=== PATIENT | female | born 1970 | race Caucasian/White ===

== ENCOUNTER → 2017-01-06 | Outpatient (CLI) | payer BC ==
[2017-01-06 08:41] LABS: Basophils % (A) 1 %; CH 30.6; CHCM 33.7; Eosinophils # (A) 0.1 k/uL (0-0.7); Eosinophils % (A) 1 %; Luc # (Auto) 0.18; Luc % (Auto) 3; Lymphocytes # (A) 1.4 k/uL (1.0-4.8); Lymphocytes % (A) 23 %; MCH 31.1 pg (25.0-35.0); MCHC 34.1 g/dL (31.0-37.0); MCV 91.1 fL (80.0-100.0); Mean Platelet Volume 8.1; Monocytes # (A) 0.4 k/uL (0-1.0); Monocytes % (A) 7 %; Neutrophils # (A) 4.1 k/uL (1.3-7.7); Neutrophils % (A) 66 %; RDW 11.9 % (11.5-15.5); WBC 6.3 k/uL (3.8-10.6); WBC (Perox) 6.74
[2017-01-06 08:56] LABS: Anion Gap 11 mmol/L; Blood Urea Nitrogen 14 mg/dL (7-17); Calcium 9.7 mg/dL (8.4-10.2); Carbon Dioxide 27 mmol/L (22-30); Chloride 102 mmol/L (98-107); Glucose 84 mg/dL (74-99); Non-African American GFR(MDRD) >60 (>60 ml/min/1.73 sqM); Potassium 4.7 mmol/L (3.5-5.1); Sodium 140 mmol/L (137-145)
== END | disposition home or self-care (01) ==
LOC: LABPAT 08:18
PROVIDERS: ATTEND Obstetrics & Gynecology
DX: Z01.812 Encounter for preprocedural laboratory examination (principal)
CPT/HCPCS: 80048; 85025; 86850; 86900; 86901

== ENCOUNTER 2017-01-15 05:54 | Observation (INO) | payer BC ==
[2017-01-13 10:17] VITALS: BMI 24.2
--- NOTE | 2017-01-14 16:21 | P.HPOB ---
History of Present Illness H&P Date: 01/14/17 Chief Complaint: fibroid uterus 46 year old presents for TLH with da andrews due to pelvic discomfort from a fibroid uterus. Review of Systems All systems: negative Constitutional: Denies chills, Denies fever Eyes: denies blurred vision, denies pain Ears, nose, mouth and throat: Denies headache, Denies sore throat Cardiovascular: Denies chest pain, Denies shortness of breath Respiratory: Denies cough Gastrointestinal: Denies abdominal pain, Denies diarrhea, Denies nausea, Denies vomiting Genitourinary: Denies dysuria, Denies hematuria Musculoskeletal: Denies myalgias Integumentary: Denies pruritus, Denies rash Neurological: Denies numbness, Denies weakness Psychiatric: Denies anxiety, Denies depression Endocrine: Denies fatigue, Denies weight change Past Medical History Additional Past Medical History / Comment(s): fibroids in uterus History of Any Multi-Drug Resistant Organisms: None Reported Past Surgical History: Tubal Ligation, Uterine Ablation Additional Past Surgical History / Comment(s): lasik eye surgery Past Anesthesia/Blood Transfusion Reactions: Motion Sickness Past Psychological History: No Psychological Hx Reported Smoking Status: Never smoker Past Alcohol Use History: Rare Past Drug Use History: None Reported - Past Family History Father Family Medical History: Deep Vein Thrombosis (DVT) Medications and Allergies Home Medications Medication Instructions Recorded Confirmed Type Cholecalciferol [Vitamin D3] 5,000 unit PO DAILY 01/13/17 01/13/17 History Ibuprofen [Motrin] 200 - 400 mg PO Q6HR PRN 01/13/17 01/13/17 History Allergies Allergy/AdvReac Type Severity Reaction Status Date / Time No Known Allergies Allergy Verified 01/13/17 10:11 Exam Osteopathic Statement: *. No significant issues noted on an osteopathic structural exam other than those noted in the History and Physical/Consult. Heart: RRR Lungs: CTAB Abdomen: soft, nontender Extremeties: neg megan's Assessment and Plan (1) Fibroid uterus Status: Acute Plan: 1. TLH with da andrews possible JONATHAN BSO
[~2017-01-15 05:54] MED LIST: ceFAZolin 2 GM in SODIUM CHLORIDE 0.9% 100 ML IVPB ONE
[2017-01-15] MEDS ORDERED: DEXAMETHASONE SOD PHOSPHATE 10 MG/ML 1 ML VIAL IV ONE (05:57)
[2017-01-15] MEDS ORDERED: MIDAZOLAM 2 MG/2 ML VIAL IV PRN (05:57)
[2017-01-15] MEDS ORDERED: HYDROmorphone 1 MG/ML 1 ML SYRINGE IVP PRN (05:57)
[2017-01-15] MEDS ORDERED: LIDOCAINE 1% 20 ML VIAL (10MG/ML) FOR IV START INTRADERMA ONE (06:30)
[2017-01-15] MEDS: ONDANSETRON 4 MG/2 ML VIAL IVP ONE ×2 (06:31→10:19)
[2017-01-15] MEDS: LACTATED RINGERS 1,000 ML IV SCH (06:35)
[2017-01-15] MEDS ORDERED: SCOPOLAMINE 1.5MG/72HR PATCH TRANSDERM ONE (06:59)
[2017-01-15] MEDS ORDERED: MIDAZOLAM 2 MG/2 ML VIAL ONE (07:13)
[2017-01-15] MEDS ORDERED: PHENYLEPHRINE-0.9% NACL SYG 1 MG/10 ML SYRINGE ONE (07:13)
[2017-01-15] MEDS ORDERED: fentaNYL (PF) 50 MCG/ML 2 ML AMP ONE (07:13)
[2017-01-15] MEDS ORDERED: ROCURONIUM BROMIDE 10 MG/ML 10 ML VIAL IV ONE (07:13)
[2017-01-15] MEDS ORDERED: PROPOFOL 10 MG/ML 20 ML VIAL IV ONE (07:13)
[2017-01-15] MEDS ORDERED: SUCCINYLCHOLINE CHLORIDE 100 MG/5 ML SYR IV ONE (07:13)
[2017-01-15] MEDS ORDERED: GLYCOPYRROLATE 0.2 MG/ML 2 ML VIAL ONE (07:13)
[2017-01-15] MEDS ORDERED: BUPIVACAINE (PF) 0.25% 30 ML VIAL SQ ONE ×2 (07:48→08:47)
--- NOTE | 2017-01-15 09:15 | P.OP ---
Date of Procedure: 01/15/17 Preoperative Diagnosis: 1. Fibroid uterus 2. Pelvic pain Postoperative Diagnosis: 1. Fibroid uterus 2. Pelvic pain Procedure(s) Performed: Total laparoscopic hysterectomy right salpingectomy with da Johnnie Anesthesia: KWAN Surgeon: Mervat Moreno Hydropulper #1: Pamella Chen Estimated Blood Loss (ml): 10 IV fluids (ml): 700 Urine output (ml): 150 Pathology: other (Uterus cervix right fallopian tube) Condition: stable Disposition: PACU Operative Findings: Fibroid uterus, bilateral normal ovaries and tubes Description of Procedure: Patient taken the operating room where general anesthesia was obtained without difficulty. She is prepped and draped in normal sterile fashion dorsal lithotomy position, legs placed in the Josh stirrups. Weighted speculum placed in the vagina and the anterior lip the cervix was grasped with single- tooth tenaculum. The uterus sounded to 10 cm and the cervix diameter was 3.5 cm. The appropriate manipulator tip and ring were placed on the Meghan manipulator. The Meghan manipulator was then placed in the uterus. Mcelroy catheter was also placed. Attention was then turned to the abdomen and gloves were changed. A 5 mm supraumbilical incision was made the scalpel and a 5 mm optical trocar was placed under direct visualization. 10 cm to the right of this and 2 cm down a 5 mm incision was made and 8 mm da Johnnie port was placed under direct visualization. Same measurements on the opposite side of the patient's abdomen, the 5 mm incision was made and 8 mm da Johnnie port was placed under direct visualization. In the left upper quadrant a 10 mm incision was made and a 10 mm optical trocar was placed under direct visualization. The 5 mm optical trocar was then replaced with the 8 mm da Johnnie camera port. The robot was docked on patient's right side. The camera was introduced and then the monopolar curved scissor and [place] bipolar placed under direct visualization. I broke scrub and went to the physician console. The left utero -ovarian ligament was cauterized with the [place] bipolar and cut with monopolar curved scissors. The left round ligament was cauterized with the [place] bipolar and cut with monopolar curved scissors. The posterior leaf of the broad ligament was taken down using the monopolar curved scissors. Anterior leaf of the broad ligament was then taken down using the monopolar curved scissors. The uterine artery was cauterized with the [place] bipolar and cut with monopolar curved scissors. The bladder flap was then started using the monopolar curved scissors. Attention was then turned to the right side of the patient's anatomy and the right mesosalpinx and utero-ovarian ligament was cauterized with the [place] bipolar and cut with monopolar curved scissors. The right round ligament was cauterized with the [place] bipolar and cut with monopolar curved scissors. Posterior leaf of the broad ligament was taken down using the monopolar curved scissors and the anterior leaf was taken down using the monopolar curved scissors. The uterine artery was cauterized the [place] bipolar cut with monopolar curved scissors. The bladder flap was then finished on this side. Anterior colpotomy was made using the monopolar curved scissors. The rest of the uterus was from the vaginal cuff by following the ring around with the monopolar curved scissors through the uterosacral ligaments back to the anterior portion. Once the uterus and cervix were amputated they were pulled through the vaginal cuff. Hemostasis was assured. The instruments were changed for the Cardier forcep and the leidy suture cut. The vaginal cuff was then closed using O stratafix barbed suture in a running fashion. Hemostasis was again assured and the pelvis was irrigated. All instruments were removed from the abdomen and the robot was undocked. I scrubbed back in to perform a cystoscopy. There were jets from both ureteral orifices. The abdominal incisions were closed with 4-0 Vicryl in a subcuticular fashion. Patient tolerated the procedure well, sponge and instrument counts correct 2 and she was taken to recovery room in stable condition condition
[2017-01-15] MEDS ORDERED: ONDANSETRON 4 MG/2 ML VIAL IVP PRN (10:26)
[2017-01-15] MEDS ORDERED: IBUPROFEN 600 MG TAB PO PRN (10:26)
[2017-01-15] MEDS ORDERED: SIMETHICONE 80 MG CHEWABLE PO PRN (10:26)
[2017-01-15] MEDS ORDERED: Acetaminophen-Codeine 300-30mg TAB PO PRN ×2 (10:26)
[2017-01-15] MEDS ORDERED: METOCLOPRAMIDE 5 MG/ML 2 ML VIAL IVP PRN (10:26)
[2017-01-15] MEDS: KETOROLAC 30 MG/ML 1 ML VIAL IVP PRN ×2 (12:00→18:05)
[2017-01-16] MEDS: KETOROLAC 30 MG/ML 1 ML VIAL IVP PRN ×2 (00:01→05:59)
[2017-01-16 00:48] VITALS: RESP 16
--- NOTE | 2017-01-16 07:50 | P.DS ---
Providers Date of admission: 01/16/17 00:52 Expected date of discharge: 01/16/17 Attending physician: Mervat Moreno Primary care physician: Fritz Valdez - Discharge Diagnosis(es) (1) Fibroid uterus Current Visit: Yes Status: Resolved (2) History of robot-assisted laparoscopic hysterectomy Current Visit: Yes Status: Acute Hospital Course: PAtient presented for [facility] with da andrews for fibroid uterus. She underwent this procedure without complication. Her post op course was uneventful. Her pain is well controlled, she is ambulating and voiding without difficulty. Denies N/V, F /C, CP, SOB, calf pain. She will be discharged home POD #1 in stable condition to follow up with me in 3 weeks. Plan - Discharge Summary New Discharge Prescriptions: Acetaminophen-Codeine 300-30mg [Tylenol w/codeine #3] 2 each PO Q6HR PRN #30 tab PRN Reason: Severe Pain Ibuprofen [Motrin] 600 mg PO Q6HR PRN #30 tab PRN Reason: Mild Discomfort Discharge Medication List Cholecalciferol [Vitamin D3] 5,000 unit PO DAILY 01/13/17 [History] Ibuprofen [Motrin] 200 - 400 mg PO Q6HR PRN 01/13/17 [History] Acetaminophen-Codeine 300-30mg [Tylenol w/codeine #3] 2 each PO Q6HR PRN #30 tab 01/16/17 [Rx] Ibuprofen [Motrin] 600 mg PO Q6HR PRN #30 tab 01/16/17 [Rx] Follow up Appointment(s)/Referral(s): Mervat Moreno DO [Doctor of Osteopathic Medicine] - 3 Weeks Discharge Disposition: HOME SELF-CARE
[2017-01-16 08:05] LABS: Basophils % (A) 0 %; CH 30.8; CHCM 33.6; Eosinophils % (A) 0 %; HCT 34.9 % (34.0-46.0); HDW 2.15; HGB 11.9 gm/dL (11.4-16.0); Luc # (Auto) 0.16; Luc % (Auto) 2; Lymphocytes # (A) 1.3 k/uL (1.0-4.8); Lymphocytes % (A) 13 %; MCH 31.3 pg (25.0-35.0); MCHC 34.1 g/dL (31.0-37.0); MCV 91.9 fL (80.0-100.0); Mean Platelet Volume 7.4; Monocytes # (A) 0.6 k/uL (0-1.0); Monocytes % (A) 6 %; Neutrophils # (A) 7.9 k/uL (1.3-7.7); Neutrophils % (A) 79 %; RDW 12.1 % (11.5-15.5); WBC (Perox) 10.78
[2017-01-16 09:33] VITALS: BP 94/58; PULSE 78; TEMP 97.8
== END 2017-01-16 09:37 | disposition home or self-care (01) ==
LOC: OR 05:54 → 4FBP 09:03 → OR 01-16 00:52
PROVIDERS: ADMIT Obstetrics & Gynecology; ATTEND Obstetrics & Gynecology
DX: D25.1 Intramural leiomyoma of uterus (principal); R10.2 Pelvic and perineal pain; Z79.899 Other long term (current) drug therapy; Z82.49 Family history of ischemic heart disease and other diseases of the circulatory system
CPT/HCPCS: 58573; S2900; 81025; 85025; 86850; 86900; 86901; 88307; 96374

== ENCOUNTER → 2017-12-11 | Outpatient (CLI) | payer BC ==
--- NOTE | 2017-12-15 08:54 | MM ---
Reason for exam: screening (asymptomatic). Last mammogram was performed 2 years and 1 month ago. History: Family history of breast cancer in paternal grandmother. Benign cyst aspiration of the left breast, 2010. Physical Findings: A clinical breast exam by your physician is recommended on an annual basis and results should be correlated with mammographic findings. MG 3D Screening Mammo W/Cad Bilateral CC and MLO view(s) were taken. Prior study comparison: October 30, 2015, bilateral MG 3d diag mammo w/cad ANNIE. November 04, 2011, CAD bilateral diagnostic mammogram. New masses on the right particularly the upper outer quadrant palpable and 8 o'clock. They appear circumscribed on 3D images. ASSESSMENT: Incomplete: need additional imaging evaluation, BI-RAD 0 RECOMMENDATION: Ultrasound of the right breast. [facility] will attempt to contact patient to return for ultrasound.
== END | disposition home or self-care (01) ==
LOC: RADMAMWWP 10:15
PROVIDERS: ATTEND Family Medicine
DX: Z12.31 Encounter for screening mammogram for malignant neoplasm of breast (principal)
CPT/HCPCS: 77063; 77067

== ENCOUNTER → 2017-12-24 | Outpatient (CLI) | payer BC ==
--- NOTE | 2017-12-25 11:27 | USB ---
Reason for exam: additional evaluation requested from abnormal screening. History: Family history of breast cancer in paternal grandmother. Benign cyst aspiration of the left breast, 2010. Physical Findings: Nurse Summary: 2cm movable nodule in the right breast, 1cm nodule in the left breast at 12 o'clock and a 1cm nodule in the left breast at 2:30 (nurse dw). US Breast Workup Limited ANNIE Right breast ultrasound includes all four quadrants, the retroareolar region and axilla. Finding demonstrates a 1.1 x 0.9 x 1.2cm oval, mixed lesion at 12 o'clock suspect a cyst with debris for which a 6 month follow up is recommended, a 2.2 x 0.6 x 2.5cm oval, cystic lesion at 8 o'clock, a 2.1 x 1.1 x 2.5cm oval, cystic lesion at 10 o'clock and a 2.8 x 1.4 x 2.3cm oval, cystic lesion at 10 o'clock BB. Left breast ultrasound demonstrates a 2.7 x 1.1 x 2.2cm oval, cystic lesion at 1 o'clock, a 0.7 x 0.7 x 0.6cm, oval, mixed lesion at 2 o'clock suspect a cyst with debris for which a 6 month follow up is recommended and a 1.1 x 1.0 x 1.1cm oval, cystic lesion at 2 o'clock BB. These results were verbally communicated with the patient and result sheet given to the patient on 12/24/17. ASSESSMENT: Probably benign, BI-RAD 3 RECOMMENDATION: Ultrasound of both breasts in 6 months.
== END | disposition home or self-care (01) ==
LOC: RADUSWWP 14:54
PROVIDERS: ATTEND Family Medicine
DX: R92.8 Other abnormal and inconclusive findings on diagnostic imaging of breast (principal)

== ENCOUNTER → 2021-02-28 | Outpatient (CLI) | payer BC ==
--- NOTE | 2021-03-12 09:14 | EM ---
This is a report on 7 day the event monitor. Baseline rhythm is sinus. Patient remains in sinus rhythm throughout the recording. Patient had frequent PVCs with ventricular bigeminy and trigeminy. No sustained arrhythmias. No significant supraventricular arrhythmias. Patient complained of heart beat felt on couple of occasions seemed to be correlating with PVCs. However, most of the time and he had PVCs, patient did not mention any symptoms. Final impression: #1. Sinus rhythm with episodes of sinus tachycardia. #2. Frequent PVCs with ventricular bigeminy and trigeminy but no sustained ventricular tachycardia. #3. No significant supraventricular arrhythmias #4. Patient had occasional symptoms of heart beat be felt associated with PVCs. However, there is inconsistent correlation between arrhythmia and symptoms because patient was mostly asymptomatic. BERNARDOD
== END | disposition home or self-care (01) ==
LOC: RADECHMAIN 11:43
PROVIDERS: ATTEND Family Medicine
DX: I49.1 Atrial premature depolarization (principal)
CPT/HCPCS: 93270

== ENCOUNTER → 2021-05-27 | Outpatient (CLI) | payer BC ==
[2021-05-27 11:51] LABS: Chol/HDL Ratio 2.52; LDL Cholesterol,Calculated 99.4 mg/dL (0.0-131.0); VLDL Calculation 14.6 mg/dL (5.00-40.00)
== END | disposition home or self-care (01) ==
LOC: LABWHC1 07:45
PROVIDERS: ATTEND Internal Medicine
DX: E78.5 Hyperlipidemia, unspecified (principal)
CPT/HCPCS: 36415; 80061

== ENCOUNTER → 2022-09-16 | Outpatient (CLI) | payer BC ==
--- NOTE | 2022-09-17 08:50 | MM ---
Reason for Exam: Screening (asymptomatic). Last mammogram was performed 4 year(s) and 9 month(s) ago. Patient History: Menarche at age 15. First Full-Term at age 19. 2010, Benign Cyst Aspiration on the left side. Paternal grandmother had breast cancer. Risk Values: Trisha 5 year model risk: 0.7%. NCI Lifetime model risk: 6.5%. Prior Study Comparison: 11/04/2011 Bilateral Diagnostic Mammogram, [facility]. 10/30/2015 Bilateral Diagnostic Mammogram, [facility]. 12/11/2017 Bilateral Screening Mammogram, [facility]. Tissue Density: The breast tissue is extremely dense which could obscure a lesion on mammography. Findings: Analyzed By CAD. There is a mobile 1.2 cm circumscribed mass in the posterior upper aspect right breast which is diminished in size from prior studies. Roughly 2.3 cm focal asymmetric density in the anterior left breast slightly outer aspect on CC view appears more prominent from prior studies. Cannot exclude underlying lesion. There is 8 mm oval circumscribed mass posterior and to the outer aspect of this lesion on same cc slice 21. Overall Assessment: Incomplete: need additional imaging evaluation, BI-RAD 0 Management: Diagnostic Breast Ultrasound of the left breast. Special View Mammogram of the left breast. Special view mammogram and ultrasound left breast. Electronically signed and approved by: Michael Luciano M.D.
== END | disposition home or self-care (01) ==
LOC: RADMAMWWP 07:04
PROVIDERS: ATTEND Family Medicine
DX: Z12.31 Encounter for screening mammogram for malignant neoplasm of breast (principal); Z80.3 Family history of malignant neoplasm of breast
CPT/HCPCS: 77063; 77067

== ENCOUNTER → 2022-09-19 | Outpatient (CLI) | payer BC ==
--- NOTE | 2022-09-19 14:53 | MM ---
Reason for Exam: Additional evaluation requested from abnormal screening. Last screening mammogram was performed less than 1 month ago. Patient History: Menarche at age 15. First Full-Term at age 19. 2010, Benign Cyst Aspiration on the left side. Paternal grandmother had breast cancer. Risk Values: Trisha 5 year model risk: 0.7%. NCI Lifetime model risk: 6.5%. Prior Study Comparison: 10/30/2015 Bilateral Diagnostic Mammogram, [facility]. 12/11/2017 Bilateral Screening Mammogram, [facility]. 09/16/2022 Bilateral MG 3D screening mammo w/cad, [facility]. Tissue Density: Left: The breast tissue is heterogeneously dense. This may lower the sensitivity of mammography. Findings: Analyzed By CAD. Focal asymmetry seen within the left breast upper outer quadrant measuring approximately 22 cm from nipple on CC imaging and up to 12 mm in size. On MLO this is felt to be in the upper aspect of the breast. Overall Assessment: Incomplete: need additional imaging evaluation, BI-RAD 0 Management: Diagnostic Breast Ultrasound of the left breast. Ultrasound imaging of the left breast upper outer quadrant for focal asymmetry. A clinical breast exam by your physician is recommended on an annual basis and results should be correlated with mammographic findings. This exam should not preclude additional follow-up of suspicious palpable abnormalities. Results were given to the patient verbally at the time of exam. Electronically signed and approved by: Issa Pollard DO
--- NOTE | 2022-09-23 09:23 | USB ---
Reason for Exam: Additional evaluation requested from abnormal screening. Patient History: Menarche at age 15. First Full-Term at age 19. 2011, Benign Cyst Aspiration on the left side. Paternal grandmother had breast cancer. Risk Values: Trisha 5 year model risk: 0.7%. NCI Lifetime model risk: 6.5%. Prior Study Comparison: 10/30/2015 Bilateral Diagnostic Mammogram, [facility]. 12/11/2017 Bilateral Screening Mammogram, [facility]. 09/16/2022 Bilateral MG 3D screening mammo w/cad, [facility]. Findings: The upper outer quadrant of the left breast, the axilla of the left breast and the retroareolar of the left breast were scanned. Targeted ultrasound of the upper outer left breast performed. At 2:00 2 cm from nipple is anechoic cyst measuring up to 7 mm. No suspicious masses are identified. The internal contents are more anechoic on today's exam there is posterior acoustic enhancement is evident. Findings not significantly changed since 2018 and are favored represent complicated cyst. Asymmetric area on mammogram in the upper outer quadrant correlates with fibroglandular tissue. No suspicious masses identified. Overall Assessment: Benign, BI-RAD 2 Management: Screening Mammogram of both breasts in 1 year. A clinical breast exam by your physician is recommended on an annual basis and results should be correlated with mammographic findings. This exam should not preclude additional follow-up of suspicious palpable abnormalities. Results were given to the patient verbally at the time of exam. Electronically signed and approved by: Issa Pollard DO
== END | disposition home or self-care (01) ==
LOC: RADMAMWWP 14:07
PROVIDERS: ATTEND Family Medicine
DX: R92.8 Other abnormal and inconclusive findings on diagnostic imaging of breast (principal); Z80.3 Family history of malignant neoplasm of breast
CPT/HCPCS: 77061; 77065

== ENCOUNTER 2022-12-02 09:23 | Emergency (ER) | payer BC, OTHER ==
[2022-12-02 09:29] VITALS: TEMP 98
[2022-12-02] MEDS ORDERED: HYDROmorphone 0.5 MG/0.5 ML SYRINGE IVP STA (09:31)
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
[2022-12-02 09:36] LABS: Glucose,Whole Blood 96 mg/dL (70-110)
--- NOTE | 2022-12-02 09:51 | XR ---
EXAMINATION TYPE: XR chest 1V portable DATE OF EXAM: 12/02/2022 COMPARISON: NONE HISTORY: Pain TECHNIQUE: Single frontal view of the chest is obtained. FINDINGS: There is no focal air space opacity, pleural effusion, or pneumothorax seen. The cardiac silhouette size is within normal limits. The osseous structures are intact. IMPRESSION: No acute process.
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
[2022-12-02 10:12] LABS: Basophils % (A) 1 %; Eosinophils # (A) 0.1 k/uL (0-0.7); Eosinophils % (A) 2 %; HCT 43.4 % (34.0-46.0); HGB 14.7 gm/dL (11.4-16.0); Lymphocytes # (A) 1.6 k/uL (1.0-4.8); Lymphocytes % (A) 30 %; MCH 30.1 pg (25.0-35.0); MCHC 33.8 g/dL (31.0-37.0); MCV 88.9 fL (80.0-100.0); Mean Platelet Volume 8.9; Monocytes # (A) 0.3 k/uL (0-1.0); Monocytes % (A) 6 %; Neutrophils # (A) 3.2 k/uL (1.3-7.7); Neutrophils % (A) 59 %; Platelet Count 189 k/uL (150-450); RBC 4.88 m/uL (3.80-5.40); RDW 12.3 % (11.5-15.5); WBC 5.4 k/uL (3.8-10.6)
[2022-12-02 10:17] LABS: ALT 21 U/L (4-34); AST 25 U/L (14-36); African American GFR (CKD) >90 (>60 ml/min/1.73 sqM); Albumin 5.1 g/dL (3.5-5.0); Alcohol <10 mg/dL; Alkaline Phosphatase 63 U/L (38-126); Anion Gap 10 mmol/L; Blood Urea Nitrogen 11 mg/dL (7-17); Calcium 10.3 mg/dL (8.4-10.2); Carbon Dioxide 28 mmol/L (22-30); Chloride 104 mmol/L (98-107); Glucose 89 mg/dL (74-99); Non-African American GFR(CKD) >90 (>60 ml/min/1.73 sqM); Potassium 4.2 mmol/L (3.5-5.1); Sodium 142 mmol/L (137-145); Total Bilirubin 0.5 mg/dL (0.2-1.3); Total Protein 8.1 g/dL (6.3-8.2)
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
[2022-12-02] MEDS ORDERED: HYDROmorphone 1 MG/ML 1 ML SYRINGE IVP STA (10:40)
[2022-12-02] MEDS ORDERED: ACET/COD 300 MG/30 MG STARTER PACK 6 TAB BTL PO STA (10:43)
[2022-12-02 10:47] LABS: INR 0.9 (<1.2); Partial Thromboplastin Time 22.9 sec (22.0-30.0); Prothrombin Time 9.8 sec (9.0-12.0)
[2022-12-02 11:16] VITALS: BP 113/83; PULSE 70; RESP 17
[2022-12-02 11:35] LABS: Amphetamine Screen,Urine Not Detected (NotDetected); Barbiturate Screen,Urine Not Detected (NotDetected); Benzodiazepines Screen,Urine Not Detected (NotDetected); Cocaine Screen,Urine Not Detected (NotDetected); Methadone Screen, Urine Not Detected (NotDetected); Opiate Screen,Urine Not Detected (NotDetected); Oxycodone Screen, Urine Not Detected (NotDetected); Phencyclidine Screen,Urine Not Detected (NotDetected); Tricyclic Antidepressant,Urine Not Detected (NotDetected); Urn Cannabinoid Scrn Not Detected (NotDetected)
[2022-12-02] MEDS ORDERED: ONDANSETRON 4 MG TAB PO STA (12:02)
[2022-12-02] MEDS ORDERED: ONDANSETRON 4 MG ODT STARTER PACK 2 TAB BTL PO STA (12:03)
== END 2022-12-02 12:30 | disposition home or self-care (01) ==
LOC: EC 09:23
DX: S16.1XXA Strain of muscle, fascia and tendon at neck level, initial encounter (principal); V49.40XA Driver injured in collision with unspecified motor vehicles in traffic accident, initial encounter
CPT/HCPCS: 36415; 93005; 86900; 86901; 80053; 85025; 85610; 85730; 86850; 80306; 80320; 72170; 71045; 72125; 70450; 99285; 96374; 96376; J1170 ×2; S0119

== ENCOUNTER → 2023-06-04 | Outpatient (CLI) | payer BC ==
--- NOTE | 2023-06-04 15:53 | US ---
EXAMINATION TYPE: US thyroid st tissue head/neck DATE OF EXAM: 06/04/2023 COMPARISON: NONE CLINICAL INDICATION: Female, 53 years old with history of E04.8 GOITER; Neck swelling GLAND SIZE: Right Lobe: 4.6 x 1.3 x 1.4 cm Overall Parenchyma: homogenous Left Lobe: 4.3 x 1.7 x 1.3 cm Overall Parenchyma: homogeneous Isthmus Thickness: 0.1 cm NODULES RIGHT: # of nodules measured on right: 0 LEFT: # of nodules measured on left: 0 ISTHMUS: # of nodules measured in the isthmus: 0 Bilateral neck scanned, no evidence of lymphadenopathy. IMPRESSION: Unremarkable thyroid ultrasound without discrete nodule.
== END | disposition home or self-care (01) ==
LOC: RADUSWWP 15:13
PROVIDERS: ATTEND Family Medicine
DX: E04.8 Other specified nontoxic goiter (principal); R22.1 Localized swelling, mass and lump, neck
CPT/HCPCS: 76536

== ENCOUNTER → 2024-08-23 | Outpatient (CLI) | payer BC ==
--- NOTE | 2024-08-24 11:14 | MM ---
Reason for Exam: Screening (asymptomatic). Last mammogram was performed 1 year(s) and 11 month(s) ago. Patient History: Menarche at age 15. First Full-Term at age 19. Hysterectomy at age 46. 2010, Benign Cyst Aspiration on the left side. Paternal grandmother had breast cancer. Risk Values: Rtisha 5 year model risk: 0.8%. NCI Lifetime model risk: 6.3%. Prior Study Comparison: 12/11/2017 Bilateral Screening Mammogram, [facility]. 09/16/2022 Bilateral MG 3D screening mammo w/cad, [facility]. 09/19/2022 Left MG 3D work up w/cad , [facility]. Tissue Density: The breasts are heterogeneously dense, which may obscure small masses. Findings: Analyzed By CAD. There is no suspicious group of microcalcifications or new suspicious mass in either breast. Chronic nodularity is stable. Overall Assessment: Benign, BI-RAD 2 Management: Screening Mammogram of both breasts in 1 year. . Patient should continue monthly self-breast exams. A clinical breast exam by your physician is recommended on an annual basis. This exam should not preclude additional follow-up of suspicious palpable abnormalities. Note on Trisha scores and lifetime risk: 1. A Trisha score greater than 3% is considered moderate risk. If this is the case, consider specialist referral to assess eligibility for a risk reducing agent. 2. If overall lifetime risk for the development of breast cancer is 20% or higher, the patient may qualify for future screening with alternating mammogram and breast MRI. [facility], , 08/24/2024 11:11 AM. Electronically signed and approved by: Dick Lance M.D. Radiologis
== END | disposition home or self-care (01) ==
LOC: RADMAMWWP 12:52
PROVIDERS: ATTEND Family Medicine
CPT/HCPCS: 77063; 77067